=== PATIENT | female | born 1985 | race Native Hawaiian/Other Pacific Islander ===

== ENCOUNTER 2017-02-26 17:21 | Emergency (ER) | payer OTHER ==
[2017-02-26 17:31] VITALS: BP 119/69; PULSE 72; RESP 14; TEMP 98.6; O2SAT 99
--- NOTE | 2017-02-26 18:57 | ED PDOC ---
Lower Extremity Pain/Injury Time Seen by Provider: 02/26/17 17:31 Chief Complaint (Nursing): Lower Extremity Problem/Injury Chief Complaint (Provider): Left toe pain and bruising History Per: Patient History/Exam Limitations: no limitations Onset/Duration Of Symptoms: Days (2) Current Symptoms Are (Timing): Still Present Additional Complaint(s): Wendy Whiting is a 31 y/o female presenting to the ER on 02/26/2017 with complaints of pain and ecchymosis to the left fourth toe. Patient reports symptoms began after she stubbed her toe on a dresser. She notes the ecchymosis has been persistent since onset, prompting the patient to ambulate to the ER to seek medical attention. On arrival, she does not complain of pain. Patient states she applied a Maori homeopathic topical ointment for relief. Denies any associated numbness or tingling sensation. Past Medical History Reviewed: Historical Data, Nursing Documentation, Vital Signs Vital Signs: Last Vital Signs Temp 98.6 F 02/26/17 17:27 Pulse 72 02/26/17 17:27 Resp 14 02/26/17 17:27 BP 119/69 02/26/17 17:27 Pulse Ox 99 02/26/17 17:27 - Medical History PMH: No Chronic Diseases - Surgical History Surgical History: No Surg Hx - Family History Family History: States: Unknown Family Hx - Social History Current smoker - smoking cessation education provided: No Alcohol: None Drugs: Denies - Home Medications Home Medications: Ambulatory Orders Medication Instructions Recorded No Known Home Med 02/26/17 - Allergies Allergies/Adverse Reactions: Allergies Allergy/AdvReac Type Severity Reaction Status Date / Time No Known Allergies Allergy Verified 02/26/17 17:27 Review of Systems ROS Statement: Except As Marked, All Systems Reviewed And Found Negative Constitutional: Negative for: Fever Musculoskeletal: Positive for: Foot Pain ((+) toe pain ) Neurological: Negative for: Weakness, Numbness Physical Exam - Reviewed Nursing Documentation Reviewed: Yes Vital Signs Reviewed: Yes - Physical Exam Appears: Positive for: Non-toxic, No Acute Distress Head Exam: Positive for: ATRAUMATIC, NORMOCEPHALIC Skin: Positive for: Normal Color. Negative for: Rash Eye Exam: Positive for: Normal appearance Neck: Positive for: Normal Extremity: Positive for: Normal ROM, Tenderness ((+) ttp to fourth left toe with ecchymosis extending over the fourth metatarsal ). Negative for: Deformity , Swelling Neurologic/Psych: Positive for: Alert, Oriented. Negative for: Motor/Sensory Deficits - ECG O2 Sat by Pulse Oximetry: 99 Medical Decision Making Medical Decision Makin:31 Initial Impression- 31 y/o with left toe pain Initial Plan- * XR Left toe 18:55 XR Reviewed, shows no acute findings. Pt requires no further treatment in the ED and will be discharged routinely. Pt was advised to elevate her foot, apply ice, and take Ibuprofen as needed. Return precautions were given if symptoms persist or worsen. Condition is stable for discharge. Clinical Impression- Toe contusion Documented by Jossie Egan, acting as a scribe for Lucinda West PA-C All medical record entries made by the Scribe were at my direction and personally dictated by me. I have reviewed the chart and agree that the record accurately reflects my personal performance of the history, physical exam, medical decision making, and the department course for this patient. I have also personally directed, reviewed, and agree with the discharge instructions and disposition. Disposition - Clinical Impression Clinical Impression: Toe contusion - Patient ED Disposition Is Patient to be Admitted: No Counseled Patient/Family Regarding: Diagnosis, Need For Followup - Disposition Disposition: Routine/Home Disposition Time: 18:55 Condition: GOOD Additional Instructions: Ice, elevation, motrin for pain. Instructions: Contusion in Adults (ED) Forms: [employer] ([place])
--- NOTE | 2017-02-26 20:19 | RAD ---
PROCEDURE: Left Foot Radiographs -4 digit. HISTORY: 4th toe pain, hit with table 2 days ago COMPARISON: None. FINDINGS: BONES: No fracture identified. JOINTS: No dislocation seen. There is bony fusion of the 4th and 5th middle and distal phalanges. SOFT TISSUES: Unremarkable OTHER FINDINGS: None. IMPRESSION: No fracture or dislocation identified.
== END 2017-02-26 19:05 | disposition home or self-care (01) ==
LOC: H.ER 17:21
DX: S90.122A Contusion of left lesser toe(s) without damage to nail, initial encounter (principal); W22.03XA Walked into furniture, initial encounter